=== PATIENT | female | born 1980 | race Caucasian/White ===

== ENCOUNTER 2018-04-03 23:44 | Emergency (ER) | payer MEDICAID ==
[~2018-04-03] VITALS: Ht 167.6 cm; Wt 90.7 kg
[2018-04-03 23:53] VITALS: BP 111/71
--- NOTE | 2018-04-03 23:55 | NUR ---
37 Y/O F PRESENTS TO THE ED W/C/O "BARTHOLIAN CYST. I WAS SEEN BY DR. PERKINS ON THE AND SHE TOLD ME TO DO SITZ BATH AND TO COME BACK IF IT DIDN'T WORK. ITS GOTTEN WORSE AND FEELS LIKE ITS BURNING NOW." HARD CYST NOTED TO L LABIA APROX 4IN X 2IN AND TO L GLUTEAL/PERIANAL REGION 4 IN X 3 IN. NO DRAINAGE NOTED.PT DENIES N/V/D; SKIN IS INTACT, PINK/WARM/DRY; AAOX4, PERRL, WITH EVEN AND STEADY GAIT; LUNGS CLEAR BL, BREATHING UNLABORED; HR EVEN AND REGULAR, BL PERIPHERAL PULSES PRESENT; BS ACTIVE X4, NO TENDERNESS TO PALPATION, NO HEPATOSPLENOMEGALLY PALPATED, RESONANT TO PERCUSSION; PT DENIES ANY FEVER, CP, SOB, OR COUGH AT THIS TIME; PT STATES 10/10 PAIN AT THIS TIME; VSS; PATIENT POSITIONED FOR COMFORT; HOB ELEVATED; BEDRAILS UP X2; BED DOWN.
--- NOTE | 2018-04-03 23:55 | NUR ---
TOBED # 4 AMBULATORY, REPORT GIVEN TO RAMONA FISHMAN
[2018-04-04] MEDS ORDERED: KETOROLAC 60 MG/2 ML VIAL IM ONE (00:50)
--- NOTE | 2018-04-04 01:20 | NUR ---
PT STATES SHE IS IN 10/10 PAIN AND THE TORDOL ISN'T HELPING. DR. BLOOM MADE AWARE
--- NOTE | 2018-04-04 01:22 | NUR ---
Dr. Santos evaluating patient at bedside.
[2018-04-04] MEDS ORDERED: LIDOCAINE 2% 1000 MG/50 ML VIAL INJ ONE (01:25)
--- NOTE | 2018-04-04 01:30 | NUR ---
PER ORDER FROM DR, I&D SETUP PLACED AT BEDSIDE FOR PROCEDURE
--- NOTE | 2018-04-04 01:59 | NUR ---
Female Senior Investigator accompanied female patient for procedure.
[2018-04-04 02:30] VITALS: BP 114/74
--- NOTE | 2018-04-04 02:30 | NUR ---
Patient discharged with v/s stable. Written and verbal after care instructions given and explained. Patient alert, oriented and verbalized understanding of instructions. Ambulatory with steady gait. All questions addressed prior to discharge. ID band removed. Patient advised to follow up with PMD. Rx of MOTRIN, NORCO, AND KEFLEX given. Patient educated on indication of medication including possible reaction and side effects. Opportunity to ask questions provided and answered.
== END 2018-04-04 02:30 | disposition home or self-care (01) ==
LOC: MED 23:44
DX: N76.4 Abscess of vulva (principal)
CPT/HCPCS: 56405; 96372; 99284; J1885; J2001

== ENCOUNTER 2019-07-11 20:03 | Emergency (ER) | payer MEDICAID ==
[~2019-07-11] VITALS: Ht 170.2 cm; Wt 90.7 kg
[2019-07-11 20:27] VITALS: BP 127/67
--- NOTE | 2019-07-11 20:31 | NUR ---
PT AMBULATED TO LOBBY WITH STEADY GAIT.
--- NOTE | 2019-07-11 22:26 | NUR ---
PT C/O OF LEFT ARM PAIN. PT HAD A SLIP AND FALL TODAY AT THE [facility] AND FELL ON LEFT ARM. PAIN LEVEL 7/10. BURNING PAIN. CAP REFILL LESS THAN 2 SECONDS. NO SWELLING OR BRUISES NOTED. SKIN WARM AND DRY TO TOUCH. PT SITTING ON CHAIR AT BEDSIDE. NKA. NO PAST MEDICAL HISTORY.
--- NOTE | 2019-07-11 22:31 | NUR ---
ERMD AT BEDSIDE.
[2019-07-11 22:47] VITALS: BP 116/73
--- NOTE | 2019-07-11 22:50 | NUR ---
Patient discharged with v/s stable. PT given instructions to use ice pack and rest left arm. Written and verbal after care instructions given and explained. Patient verbalized understanding. Ambulatory with steady gait. All questions addressed prior to discharge. Advised to follow up with PMD.
== END 2019-07-11 22:47 | disposition home or self-care (01) ==
LOC: MED 20:03
DX: S50.12XA Contusion of left forearm, initial encounter (principal); R03.0 Elevated blood-pressure reading, without diagnosis of hypertension; W01.0XXA Fall on same level from slipping, tripping and stumbling without subsequent striking against object, initial encounter; Y93.89 Activity, other specified; Y92.89 Other specified places as the place of occurrence of the external cause; Y99.8 Other external cause status
CPT/HCPCS: 73080; 73090; 99283

== ENCOUNTER 2020-06-01 13:19 | Emergency (ER) | payer MEDICAID ==
[~2020-06-01] VITALS: Ht 170.2 cm; Wt 109.3 kg
[2020-06-01 13:30] VITALS: BP 112/95
--- NOTE | 2020-06-01 13:35 | NUR ---
39 YO FEMALE CO ABCESS X 2 DAY UNDER L BUTTOCK, DENIES DRAINAGE, REPORTS CHILLS, DENIES FEVER. PMH- DENEIS RX- MOTRIN ALLERGIES- LATEX.
--- NOTE | 2020-06-01 13:46 | NUR ---
Dr. Galeano is evaluating the patient at bedside.
[2020-06-01] MEDS ORDERED: LIDOCAINE/PRILOCAINE 2.5% 5 GM TUBE TP ONE (13:50)
[2020-06-01] MEDS ORDERED: LIDOCAINE MPF 1% 10 MG/ML VIAL INJ ONE (13:50)
[2020-06-01] MEDS ORDERED: KETOROLAC 30 MG/ML VIAL IM ONE (13:50)
[2020-06-01 15:00] VITALS: BP 112/95
--- NOTE | 2020-06-01 15:01 | NUR ---
Patient discharged with v/s stable. Written and verbal after care instructions given and explained. Patient alert, oriented and verbalized understanding of instructions. Ambulatory with steady gait. All questions addressed prior to discharge. ID band removed. Patient advised to follow up with PMD. Rx of KEFLEX, NORCO AND NAPROSYN given. Patient educated on indication of medication including possible reaction and side effects. Opportunity to ask questions provided and answered.
== END 2020-06-01 15:01 | disposition home or self-care (01) ==
LOC: MED 13:19
DX: N75.0 Cyst of Bartholin's gland (principal); Z91.040 Latex allergy status; Z98.890 Other specified postprocedural states
CPT/HCPCS: 56420; 96372; 99284; J1885; J2001; 99283